=== PATIENT | male | born 1965 | race Caucasian/White ===

== ENCOUNTER 2022-06-25 18:15 | Emergency (ER) | payer OTHER, SELFPAY ==
[2022-06-25 19:01] VITALS: BP 120/72; PULSE 65; RESP 18; TEMP 36.7; O2SAT 99
--- NOTE | 2022-06-25 19:49 | ED.EAR ---
HPI - Ear Problem General Chief complaint: Ear Stated complaint: lt ear discomfort Time Seen by Provider: 06/25/22 19:40 Source: patient Mode of arrival: ambulatory Limitations: no limitations History of Present Illness HPI Narrative: 57-year-old male presented for complaint of left ear/jaw pain since yesterday. States pain is almost non-existent unless you touch the area just behind the ear lobe. Rates pain at 10 with palpation. He has not taken anything for pain. He denies pain with movement of the jaw, popping, clicking, decreased hearing, tinnitus, nausea vomiting, fevers or chills. MD Complaint: ear pain Related Data Allergies Allergy/AdvReac Type Severity Reaction Status Date / Time Penicillins AdvReac Mild Rash Verified 06/25/22 19:43 Review of Systems Review of Systems: CONSTITUTIONAL: Denies malaise, chills, or fever. EYES: Denies visual changes, redness, or discharge. ENT: Denies rhinorrhea, congestion, sinus pain, and sore throat. Reports ear pain CARDIOVASCULAR: Denies chest pain, palpitations, or edema. RESPIRATORY: Denies cough or dyspnea. GASTROINTESTINAL: Denies abdominal pain, nausea, vomiting, diarrhea SKIN: Denies rash or itching. MUSCULOSKELETAL: Denies myalgia. NEUROLOGIC: Denies headache. All systems reviewed & are unremarkable except as noted in HPI and below PMFSH Comments At time of signature, agree with nursing past medical, surgical, social and family history. There is no relevant family history pertinent to the presenting complaint Exam Narrative: GENERAL: Well-appearing, well-nourished, and in no acute distress. HEAD: Normocephalic EYES: PERRLA, conjunctivae clear ENT: Nares clear. Mucous membranes moist. TMs pearly with light reflex bilaterally; no tragal tenderness. Tenderness with light palpation just posterior to the left lobe. Oropharynx not erythematous without lesions. Multiple missing teeth and no apparent site of gum infection. Tonsils not enlarged and without exudate NECK: Supple. No lymphadenopathy CHEST: Clear to auscultation, breath sounds equal. HEART: Regular rate and rhythm. No murmur heard. SKIN: Warm, dry, no rash. NEURO: Alert and oriented x3. PSYCH: Normal mood and affect Course Course Emergency Course: Patient is aware of diagnosis, understands and agrees to treatment plan. Anticipatory guidance given. Patient agrees to follow-up as directed and is aware of reasons to seek care at the emergency department. Portions of this record may have been created with voice recognition software Level of Care: Express Care Visit Vital Signs Vital signs: Vital Signs Temperature 98.0 F 06/25/22 19:01 Pulse Rate 65 06/25/22 19:01 Respiratory Rate 18 06/25/22 19:01 Blood Pressure 120/72 06/25/22 19:01 Pulse Oximetry 99 06/25/22 19:01 Oxygen Delivery Room Air 06/25/22 19:01 Temperature 98.0 F 06/25/22 19:01 Pulse Rate 65 06/25/22 19:01 Respiratory Rate 18 06/25/22 19:01 Blood Pressure 120/72 06/25/22 19:01 Pulse Oximetry 99 06/25/22 19:01 Oxygen Delivery Room Air 06/25/22 19:01 Reviewed Medical Decision Making MDM Narrative Medical decision making narrative: Advised supportive measures and signs/symptoms to go to the ER. Discussed multiple etiologies of symptoms. Pain does not follow dermatome and no redness or lesions noted at this time. Will start with abx. patient is appropriate for outpatient treatment and follow-up. Differential Diagnosis Differential Diagnosis: Coronavirus, strep pharyngitis, allergic rhinitis, upper respiratory tract infection, sinusitis, rhinosinusitis, nasopharyngitis, viral pharyngitis, otitis media, otitis externa, eustachian tube dysfunction, foreign body, cerumen impaction. Vital Signs Vital Signs: Vital Signs Temperature 98.0 F 06/25/22 19:01 Pulse Rate 65 06/25/22 19:01 Respiratory Rate 18 06/25/22 19:01 Blood Pressure 120/72 06/25/22 19:01 Pulse Oximetry 99
== END 2022-06-25 19:58 | disposition home or self-care (01) ==
PROVIDERS: Emergency Provider Nurse Practitioner Family
DX: H92.02 Otalgia, left ear (principal)
CPT/HCPCS: 99213; G0463

== ENCOUNTER 2024-07-07 15:40 | Emergency (ER) | payer OTHER, SELFPAY ==
--- NOTE | 2024-07-07 15:40 | ED_ITS ---
HPI - URI/Sore Throat General Chief Complaint: Upper Respiratory Infection Stated Complaint: Strep Test Time Seen by Provider: 07/07/24 15:40 Source: patient Mode of arrival: ambulatory Limitations: no limitations History of Present Illness HPI Narrative: Kwan is a 59-year-old male patient presenting to the clinic today with complaints of a sore throat as started this morning. States that his girlfriend tested positive for strep today. He is requesting a strep test. Denies any other symptoms. Related Data Home Medications ?Medication ?Instructions ?Recorded ?Confirmed ?Last Taken ?Type finasteride 5 mg tablet mg 07/07/24 Unknown History glimepiride 2 mg tablet mg 07/07/24 Unknown History metformin 500 mg tablet,extended mg PO 07/07/24 Unknown History release 24 hr rosuvastatin 10 mg tablet mg 07/07/24 Unknown History tadalafil 20 mg tablet mg 07/07/24 Unknown History tamsulosin 0.4 mg capsule mg PO 07/07/24 Unknown History Allergies Allergy/AdvReac Type Severity Reaction Status Date / Time Penicillins AdvReac Mild Rash Verified 07/07/24 15:40 Review of Systems Review of Systems: Pertinent positives per HPI. Patient denies any fever, chills, rash, headache, visual changes, dizziness, cough, shortness of breath, chest pain, palpitations, nausea, vomiting, diarrhea, constipation, abdominal pain, or any urinary issues. PMFSH Comments At the time of my signature, I reviewed and agree with the nursing past medical, surgical, social, and family history. There is no relevant family history pertinent to the patient complaint. Exam Narrative: General: Well-developed, well nourished, in no apparent distress Head: Normocephalic, atraumatic Eyes: Pupils equally round and reactive to light bilaterally, EOM intact, sclera and conjunctive clear, no discharge, lids normal Ears: TMs intact and clear, ear canals clear, no drainage, grossly hearing normal. Nose: Nares patent, clear nasal discharge, moderate inflammation, no sinus tenderness. Mouth: Oral pharynx red without lesions or masses, good dentition, MMM. Postnasal drip Neck: Supple, trachea midline, no enlargement of anterior or posterior cervical nodes, no thyroid masses or goiter palpable. Cardio: Regular rate and rhythm, s1 and s2 normal, no murmur appreciated. Resp: Clear to auscultation bilaterally, no rhonchi, rales, wheezing or rubs Course Course Emergency Course: Portions of this record may have been created with voice recognition software. Level of Care: Express Care Visit Vital Signs Vital signs: Vital Signs Temperature 36.5 C 07/07/24 15:50 Pulse Rate 57 L 07/07/24 15:50 Respiratory Rate 17 07/07/24 15:50 Blood Pressure 130/68 07/07/24 15:50 Pulse Oximetry 99 07/07/24 15:50 Oxygen Delivery Room Air 07/07/24 15:50 Temperature 36.5 C 07/07/24 15:50 Pulse Rate 57 L 07/07/24 15:50 Respiratory Rate 17 07/07/24 15:50 Blood Pressure 130/68 07/07/24 15:50 Pulse Oximetry 99 07/07/24 15:50 Oxygen Delivery Room Air 07/07/24 15:50 Vital signs reviewed MDM - URI/Sore Throat MDM Narrative Medical decision making narrative: At the time of visit patient is resting comfortably on the exam table. Patient appears to be nontoxic. Labs: Strep test was performed and negative in the clinic today. Plan: I suspect patient has pharyngitis. Supportive measures were discussed with the patient and they voiced understanding discharge instructions and agrees to treatment plan. Return precautions reviewed Differential Diagnosis Differential diagnosis: Likely upper respiratory infection, otitis media, sinusitis, viral infection, bronchitis, influenza, pharyngitis and other (COVID) Lab Data Labs: Lab Results 07/07/24 Range/Units 15:55 POC Grp A Strep Screen Negative (Negative) Discharge Plan Discharge Clinical Impression: Pharyngitis Qualifiers: Pharyngitis/tonsillitis etiology: unspecified etiology Qualified Code(s): J02.9 - Acute pharyngitis, unspecified Patient Disposition: Home Condition: Stable Instructions: Antibiotic Form, Pharyngitis (ED) Additional Instructions: Strep test was negative in the clinic today. We will send strep for culture Increase fluids and stay well hydrated Tylenol/motrin for pain/fever Flonase and OTC antihistamines as directed Vicks vapor rub to open sinuses Sinus rinses for congestion Cepacol spray, cough drops, throat lozenges, warm tea with honey/lemon, gargle salt water to soothe throat BRAT diet for diarrhea Clear liquids x 24 hours then advance as tolerated for nausea/vomiting Go to the ED if you develop a worsening in your condition- high fever not controlled by Tylenol or Motrin, dehydration, weakness, lethargy, shortness of breath, or chest pain. Follow up with your PCP in 3-5 days if symptoms persist. Patient Language: Croatian Prescriptions: No Action ibuprofen 600 mg tablet 600 mg PO TID PRN (Reason: pain) Qty: 14 0RF glimepiride 2 mg tablet tamsulosin 0.4 mg capsule PO metformin 500 mg tablet extended release 24 hr PO finasteride 5 mg tablet rosuvastatin 10 mg tablet tadalafil 20 mg tablet Follow-up/Referrals: UNKNOWN,DOCTOR [Non-Staff] - Time of Disposition: 16:11 Quality NIHSS Nursing Documentation ED NIHSS nursing documentation: reviewed/agree
[2024-07-07 15:50] VITALS: BP 130/68; PULSE 57; RESP 17; TEMP 36.5; O2SAT 99
[2024-07-07 15:57] LABS: EDSTREPNEGPOS1 Negative (Negative)
== END 2024-07-07 16:12 | disposition home or self-care (01) ==
PROVIDERS: Emergency Provider Nurse Practitioner Family
DX: J02.9 Acute pharyngitis, unspecified (principal)
CPT/HCPCS: 87081; 87880; 99213; G0463